=== PATIENT | male | born 1935 | race Caucasian/White ===

== ENCOUNTER 2024-03-01 15:48 | Emergency (ER) | payer MEDICARE, OTHER ==
[2024-03-01 16:00] VITALS: RESP 16; TEMP 98.7
--- NOTE | 2024-03-01 16:22 | ED ---
Fall HPI - General Chief Complaint: Fall Stated Complaint: Fall Time Seen by Provider: 03/01/24 15:51 Source: EMS, RN notes reviewed, old records reviewed Mode of arrival: EMS Limitations: no limitations - History of Present Illness Initial Comments: This is an 88-year-old male to the ER for evaluation of a fall patient is sitting in a chair that broke under his own weight he fell forward hitting his head does have some facial contusion and bruising. 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 ROS Other: All systems not noted in ROS Statement are negative. Past Medical History Past Medical History: CVA/TIA, Hearing Disorder / Deafness, Hyperlipidemia, Hypertension History of Any Multi-Drug Resistant Organisms: None Reported Past Surgical History: Unable to Obtain Past Psychological History: No Psychological Hx Reported Smoking Status: Unknown if ever smoked Past Alcohol Use History: Unable to Obtain Past Drug Use History: Unable to Obtain General Exam Limitations: physical limitation General appearance: alert, in no apparent distress Head exam: Present: normocephalic, normal inspection. Absent: atraumatic (Facial contusions) Eye exam: Present: normal appearance, PERRL, EOMI. Absent: scleral icterus, conjunctival injection, periorbital swelling ENT exam: Present: normal exam, mucous membranes moist Neck exam: Present: normal inspection. Absent: tenderness, meningismus, lymphadenopathy Respiratory exam: Present: normal lung sounds bilaterally. Absent: respiratory distress, wheezes, rales, rhonchi, stridor Cardiovascular Exam: Present: regular rate, normal rhythm, normal heart sounds. Absent: systolic murmur, diastolic murmur, rubs, gallop, clicks GI/Abdominal exam: Present: soft, normal bowel sounds. Absent: distended, tenderness, guarding, rebound, rigid Extremities exam: Present: normal inspection, full ROM, normal capillary refill. Absent: tenderness, pedal edema, joint swelling, calf tenderness Back exam: Present: normal inspection Neurological exam: Present: alert, oriented X3, CN II-XII intact Psychiatric exam: Present: normal affect, normal mood Skin exam: Present: warm, dry, intact, normal color. Absent: rash Course Vital Signs 03/01/24 03/01/24 15:52 20:59 Temperature 98.7 F Pulse Rate 62 60 Respiratory 16 16 Rate Blood Pressure 105/63 141/61 O2 Sat by Pulse 98 99 Oximetry - Reevaluation(s) Reevaluation #1: 03/01/24 17:57 Medical records reviewed Reevaluation #2: 03/01/24 17:57 Patient symptoms unchanged Reevaluation #3: 03/01/24 17:57 Family informed of patient's CT scan findings they want no intervention at this time patient and family prefer discharge back to facility Reevaluation #4: Was pt. sent in by a medical professional or institution (, PA, LOCOMOTIVE OPERATOR, urgent care, hospital, or [facility]...) When possible be specific @ -no Did you speak to anyone other than the patient for history (EMS, parent, family, police, friend...)? What history was obtained from this source @ -no Did you review nursing and triage notes (agree or disagree)? Why? @ -agree Are old charts reviewed (outside hosp., previous admission, EMS record, old EKG, old radiological studies, urgent care reports/EKG's, [facility] records)? Report findings @ -yes Differential Diagnosis (chest pain, altered mental status, abdominal pain women, abdominal pain men, vaginal bleeding, weakness, fever, dyspnea, syncope, headache, dizziness, GI bleed, back pain, seizure, CVA, palpatations, mental health, musculoskeletal)? @ -prior EKG interpreted by me (3pts min.). @ -yes X-rays interpreted by me (1pt min.). @ -yes negative for acute disease CT interpreted by me (1pt min.). @ -Yes positive for petechial hemorrhage and head injury but DNR U/S interpreted by me (1pt. min.). @ -no What testing was considered but not performed or refused? (CT, X-rays, U/S, labs )? Why? @ -none What meds were considered but not given or refused? Why? @ -none Did you discuss the management of the patient with other professionals (professionals i.e. , PA, LOCOMOTIVE OPERATOR, lab, RT, psych nurse, sexual assault social worker, wedger, teacher, community liaison officer, counter caser)? Give summary @ -no Was smoking cessation discussed for >3mins.? @ -no Was critical care preformed (if so, how long)? @ -no Were there social determinants of health that impacted care today? How? (Homelessness, low income, unemployed, alcoholism, drug addiction, transportation, low edu. Level, literacy, decrease access to med. care, prison, rehab)? @ -none Was there de-escalation of care discussed even if they declined (Discuss DNR or withdrawal of care, Hospice)? DNR status @ -no What co-morbidities impacted this encounter? (DM, HTN, Smoking, COPD, CAD, Cancer, CVA, ARF, Chemo, Hep., AIDS, mental health diagnosis, sleep apnea, morbid obesity)? @ -none Was patient admitted / discharged? Hospital course, mention meds given and route, prescriptions, significant lab abnormalities, going to OR and other pertinent info. @ - 88 male to the ER for evaluation of a fall out of a chair that broke landing on his face, no facial fractures patient does have some petechial hemorrhage on Xarelto will hold Xarelto today family does not want any further testing or intervention and patient will be transferred back to facility Discharge Undiagnosed new problem with uncertain prognosis? @ -no Drug Therapy requiring intensive monitoring for toxicity (Heparin, Nitro, Insulin, Cardizem)? @ -no Were any procedures done? @ -no Diagnosis/symptom? @ -Fall with head injury Acute, or Chronic, or Acute on Chronic? @ -Acute Uncomplicated (without systemic symptoms) or Complicated (systemic symptoms)? @ -Complicated Side effects of treatment? @ -no Exacerbation, Progression, or Severe Exacerbation? @ -exacerbation Poses a threat to life or bodily function? How? (Chest pain, USA, OR, pneumonia, PE, COPD, DKA, ARF, appy, cholecystitis, CVA, Diverticulitis, Homicidal, Suicidal, threat to staff... and all critical care pts) @ -yes Reevaluation #5: Differential Headache: Migraine, tension, cluster, carbon monoxide, central venous thrombosis, pension karma temporal arteritis, acute closure glaucoma, intercranial hemorrhage, mastoiditis, sinusitis, head injury, this is not meant to be an all-inclusive list. Medical Decision Making - Medical Decision Making 88 male to the ER for evaluation of a fall out of a chair that broke landing on his face, no facial fractures patient does have some petechial hemorrhage on Xarelto will hold Xarelto today family does not want any further testing or intervention and patient will be transferred back to facility - Lab Data Result diagrams: 03/01/24 16:29 03/01/24 16:29 Lab Results 03/01/24 03/01/24 03/01/24 Range/Units 16:29 16:29 16:29 WBC 7.9 (3.8-10.6) k/uL RBC 3.06 L (4.30-5.90) m/uL Hgb 9.2 L (13.0-17.5) gm/dL Hct 27.4 L (39.0-53.0) % MCV 89.6 (80.0-100.0) fL MCH 30.1 (25.0-35.0) pg MCHC 33.6 (31.0-37.0) g/dL RDW 15.3 (11.5-15.5) % Plt Count 272 (150-450) k/uL MPV 9.1 Neutrophils % 63 % Lymphocytes % 22 % Monocytes % 9 % Eosinophils % 4 % Basophils % 0 % Neutrophils # 5.0 (1.3-7.7) k/uL Lymphocytes # 1.7 (1.0-4.8) k/uL Monocytes # 0.7 (0-1.0) k/uL Eosinophils # 0.3 (0-0.7) k/uL Basophils # 0.0 (0-0.2) k/uL PT 12.5 (10.0-12.5) sec INR 1.2 H (<1.2) APTT 27.2 (22.0-30.0) sec Sodium 131 L (137-145) mmol/L Potassium 4.6 (3.5-5.1) mmol/L Chloride 103 (98-107) mmol/L Carbon Dioxide 24 (22-30) mmol/L Anion Gap 4 mmol/L BUN 19 (9-20) mg/dL Creatinine 0.86 (0.66-1.25) mg/dL Est GFR (CKD-EPI)AfAm >90 (>60 ml/min/1.73 sqM) Est GFR (CKD-EPI)NonAf 78 (>60 ml/min/1.73 sqM) Glucose 106 H (74-99) mg/dL Plasma Lactic Acid Antonio (0.7-2.0) mmol/L Calcium 8.1 L (8.4-10.2) mg/dL Phosphorus 3.4 (2.5-4.5) mg/dL Magnesium 1.6 (1.6-2.3) mg/dL Total Bilirubin 0.5 (0.2-1.3) mg/dL AST 20 (17-59) U/L ALT 14 (4-49) U/L Alkaline Phosphatase 85 (38-126) U/L Troponin I (0.000-0.034) ng/mL NT-Pro-B Natriuret Pep 246 pg/mL Total Protein 5.9 L (6.3-8.2) g/dL Albumin 3.1 L (3.5-5.0) g/dL 03/01/24 03/01/24 Range/Units 16:29 16:29 WBC (3.8-10.6) k/uL RBC (4.30-5.90) m/uL Hgb (13.0-17.5) gm/dL Hct (39.0-53.0) % MCV (80.0-100.0) fL MCH (25.0-35.0) pg MCHC (31.0-37.0) g/dL RDW (11.5-15.5) % Plt Count (150-450) k/uL MPV Neutrophils % % Lymphocytes % % Monocytes % % Eosinophils % % Basophils % % Neutrophils # (1.3-7.7) k/uL Lymphocytes # (1.0-4.8) k/uL Monocytes # (0-1.0) k/uL Eosinophils # (0-0.7) k/uL Basophils # (0-0.2) k/uL PT (10.0-12.5) sec INR (<1.2) APTT (22.0-30.0) sec Sodium (137-145) mmol/L Potassium (3.5-5.1) mmol/L Chloride (98-107) mmol/L Carbon Dioxide (22-30) mmol/L Anion Gap mmol/L BUN (9-20) mg/dL Creatinine (0.66-1.25) mg/dL Est GFR (CKD-EPI)AfAm (>60 ml/min/1.73 sqM) Est GFR (CKD-EPI)NonAf (>60 ml/min/1.73 sqM) Glucose (74-99) mg/dL Plasma Lactic Acid Antonio 1.6 (0.7-2.0) mmol/L Calcium (8.4-10.2) mg/dL Phosphorus (2.5-4.5) mg/dL Magnesium (1.6-2.3) mg/dL Total Bilirubin (0.2-1.3) mg/dL AST (17-59) U/L ALT (4-49) U/L Alkaline Phosphatase (38-126) U/L Troponin I <0.012 (0.000-0.034) ng/mL NT-Pro-B Natriuret Pep pg/mL Total Protein (6.3-8.2) g/dL Albumin (3.5-5.0) g/dL - EKG Data -: EKG Interpreted by Me (EKG is sinus bradycardia 58 CT 247 QRS 107 QTc 388) - Radiology Data Radiology results: report reviewed (CT brain C-spine facial bones x-rays chest and pelvis negative for acute disease), image reviewed Disposition Clinical Impression: Fall, Head injury, Closed head injury with petechial brain hemorrhage, History of CVA (cerebrovascular accident) Disposition: HOME SELF-CARE Condition: Serious Instructions (If sedation given, give patient instructions): Fall Prevention for Older Adults (ED), Head Injury (ED) Is patient prescribed a controlled substance at d/c from ED?: No Referrals: Nonstaff,Physician [REFERRING] - 1-2 days Time of Disposition: 18:00
[2024-03-01] MEDS: SODIUM CHLORIDE 0.9% 1,000 ML IV STA (16:40)
--- NOTE | 2024-03-01 16:56 | CT ---
EXAMINATION TYPE: CT brain stacey leal DATE OF EXAM: 03/01/2024 COMPARISON: None HISTORY: fall CT DLP: Combined DLP of 1347.8 mGycm, Automated exposure control for dose reduction was used. CONTRAST: Patient injected with 0 mL of Isovue 300. CT of the brain is performed utilizing 3 mm thick sections through the posterior fossa and 3 mm thick sections through the remaining calvarium. Study is performed within 24 hours of arrival to the hospital. There is a punctate hyperdensity in the periventricular left centrum semiovale measuring 58 Hounsfie ld units. Small petechial hemorrhage is not excluded. There is ill-defined hyperintensity within the white matter adjacent to the third ventricle on the left. This measures 77 Hounsfield units. Basal ga nglion calcification is favored. No mass effect is evident. These areas can be better evaluated on MRI with trauma hemorrhage gradient sequence. No extra-axial collections to suggest additional hemorrhage. No definite subarachnoid hemorrhage evid ent. No mass lesion is evident. No acute infarcts are evident. Periventricular white matter hypodensity is present likely on the bas is of chronic white matter ischemic change. Ventricles and sulci are very prominent for the patient age. There is opacification of the left sphenoid sinus. Some minimal mucosal thickening is within right sp henoid sinus remaining paranasal sinuses are clear. The left mastoid air cells are clear. There is pa rtial opacity position of the inferior right mastoid air cells. Some mild mastoiditis may be present. No septal destruction is identified. IMPRESSIONS: 1. Petechial hemorrhage may be adjacent to the left lateral ventricle. 2. Increased density within the white matter adjacent to the third ventricle more likely related to c alcification. Hemorrhage not excluded. Recommend MRI with gradient imaging for additional evaluation. Report was called case discussed with the emergency room at the time of interpretation. 3. Prominent atrophy with white matter ischemic type changes. CT cervical spine. COMPARISON: None CT of the cervical spine is performed in the axial plane at 2 mm thick sections. Reconstructed image s in the coronal, and sagittal plane are reviewed on the computer. No acute fractures are evident. Vertebral body alignment is normal. Some mild degenerative disc changes present C3-4 and C6-7. Some bridging spurring is present at these levels as well. Vertebral body heights are preserved. No spinal canal stenosis is evident. Uncovertebral joint hypertrophy is contributing to severe right and moderate left foraminal narrowing C3-4 severe bilateral foraminal narrowing is present C4-5. Facet changes are present at C4-5. Uncove rtebral joint hypertrophy is moderate bilateral C5-6 foraminal stenosis. IMPRESSION: 1. No acute osseous abnormality cervical spine. 2. Degenerative changes with mild loss of disc height and vertebral body spurring. 3. Some severe foraminal stenosis present C3-4 with milder foraminal narrowing present discussed abov e [facility], Workstation: [facility], 03/01/2024 4:54 PM
--- NOTE | 2024-03-01 17:03 | CT ---
EXAMINATION TYPE: CT facial bones wo con DATE OF EXAM: 03/01/2024 COMPARISON: None HISTORY: fall CT DLP: Combined DLP of 1347.8 mGycm CONTRAST: 0 mL of Isovue 300 The paranasal sinuses are examined in the axial plane at 2 mm thick sections. Reconstructed images i n the coronal plane were obtained. There is dental amalgam scatter artifact Sinuses as visualized: The maxillary sinuses are clear. The ethmoid air cells are clear. There is opacification of the left sphenoid sinus. Minimal mucosal thickening in the right sphenoid sinus. The frontal sinuses are clear. The septum is evaluated. There is septal deviation to the left. The ostiomeatal units are patent. Maxillary spine is intact. Nasal bones are intact. Greater wings of the sphenoid and zygomatic arches are normal. Mandible appears intact. IMPRESSION: 1. No acute osseous abnormality. 2. Left septal deviation. 3. Opacification of the left sphenoid sinus [facility], Workstation: [facility], 03/01/2024 5:01 PM
[2024-03-01 17:12] LABS: INR 1.2 (<1.2)
[2024-03-01 17:13] LABS: Partial Thromboplastin Time 27.2 sec (22.0-30.0); Prothrombin Time 12.5 sec (10.0-12.5)
[2024-03-01 17:24] LABS: Basophils % (A) 0 %; Eosinophils # (A) 0.3 k/uL (0-0.7); Eosinophils % (A) 4 %; HCT 27.4 % (39.0-53.0); HGB 9.2 gm/dL (13.0-17.5); Lymphocytes # (A) 1.7 k/uL (1.0-4.8); Lymphocytes % (A) 22 %; MCH 30.1 pg (25.0-35.0); MCHC 33.6 g/dL (31.0-37.0); MCV 89.6 fL (80.0-100.0); Mean Platelet Volume 9.1; Monocytes # (A) 0.7 k/uL (0-1.0); Monocytes % (A) 9 %; Neutrophils % (A) 63 %; Platelet Count 272 k/uL (150-450); RBC 3.06 m/uL (4.30-5.90); RDW 15.3 % (11.5-15.5); WBC 7.9 k/uL (3.8-10.6)
[2024-03-01 17:25] LABS: ALT 14 U/L (4-49); AST 20 U/L (17-59); African American GFR (CKD) >90 (>60 ml/min/1.73 sqM); Albumin 3.1 g/dL (3.5-5.0); Alkaline Phosphatase 85 U/L (38-126); Anion Gap 4 mmol/L; Blood Urea Nitrogen 19 mg/dL (9-20); Calcium 8.1 mg/dL (8.4-10.2); Carbon Dioxide 24 mmol/L (22-30); Chloride 103 mmol/L (98-107); Glucose 106 mg/dL (74-99); Magnesium 1.6 mg/dL (1.6-2.3); Non-African American GFR(CKD) 78 (>60 ml/min/1.73 sqM); Phosphorus 3.4 mg/dL (2.5-4.5); Potassium 4.6 mmol/L (3.5-5.1); Sodium 131 mmol/L (137-145); Total Bilirubin 0.5 mg/dL (0.2-1.3); Total Protein 5.9 g/dL (6.3-8.2)
[2024-03-01 17:34] LABS: NT-Pro-B-Type Natriuretic Pept 246 pg/mL
--- NOTE | 2024-03-01 17:46 | XR ---
EXAMINATION TYPE: XR pelvis AP view DATE OF EXAM: 03/01/2024 COMPARISON: None HISTORY: Fall, pain TECHNIQUE: AP pelvis FINDINGS: No acute fractures or dislocations evident. Nonspecific bowel gas is present. IMPRESSION: 1. No acute posttraumatic changes AP pelvis [facility], Workstation: [facility], 03/01/2024 5:44 PM
--- NOTE | 2024-03-01 17:47 | XR ---
EXAMINATION TYPE: XR chest 1V DATE OF EXAM: 03/01/2024 COMPARISON: None INDICATION: Fall, pain TECHNIQUE: Single frontal view of the chest is obtained. FINDINGS: The heart size is largest. The pulmonary vasculature is normal. The lungs are clear. No pneumothorax is evident. No displaced fractures evident. IMPRESSION: 1. No acute pulmonary process. 2. Cardiomegaly. [facility], Workstation: [facility], 03/01/2024 5:44 PM
[2024-03-01 21:00] VITALS: BP 141/61; PULSE 60
== END 2024-03-01 22:00 | disposition home or self-care (01) ==
LOC: EC 15:48
CPT/HCPCS: 36415; 70450; 70486; 71045; 72125; 72170; 80053; 83605; 83735; 83880; 84100; 84484; 85025; 85610; 85730; 93005; 96360; 96361; 99284